=== PATIENT | female | born 1945 | race Caucasian/White ===

== ENCOUNTER → 2016-05-11 | Outpatient (CLI) | payer MEDICARE | END | disposition home or self-care (01) | LOC: GMAB 17:01 | PROVIDERS: ATTEND Family Medicine | DX: R30.0 Dysuria (principal) ==

== ENCOUNTER → 2016-08-12 | Outpatient (CLI) | payer MEDICARE ==
--- NOTE | 2016-08-13 10:12 | MAM ---
History: Well woman exam. Date of exam: 08/12/2016 Services provided: Bilateral full field digital screening mammography. CAD, the images were reviewed with R2 computer aided detection. FINDINGS: Glandular tissue is scattered glandular contour. Comparison with 2012 study. No dominant mass, architectural distortion or clustered microcalcification. IMPRESSION: Benign exam Recommendation: Routine annual mammography BIRAD CATEGORY: 2 BENIGN FINDINGS NEGATIVE Electronically signed by: Brit Torres MD 08/13/2016 10:12 AM CDT Workstation: [id number]
== END | disposition home or self-care (01) ==
LOC: MAMMO 10:32
PROVIDERS: ATTEND Family Medicine
DX: Z12.31 Encounter for screening mammogram for malignant neoplasm of breast (principal)

== ENCOUNTER → 2016-09-08 | Outpatient (CLI) | payer MEDICARE | LOC: GMAB 14:16 | PROVIDERS: ATTEND Family Medicine | DX: I10 Essential (primary) hypertension (principal); E78.5 Hyperlipidemia, unspecified ==

== ENCOUNTER → 2016-10-23 | Outpatient (CLI) | payer MEDICARE ==
--- NOTE | 2016-10-23 15:48 | US ---
EXAM DESCRIPTION: Carotid Duplex CLINICAL HISTORY: STENOSIS OF BILATERAL CAROTID ARTERIES I65.23 COMPARISON: None. TECHNIQUE: Transcutaneous scanning utilizing 2-dimensional and Doppler modes to evaluate the bilateral carotid systems and vertebral arteries. Percentage of diameter of stenosis or no stenosis recorded will be based upon NASCET criteria. FINDINGS: Peak systolic/end diastolic (CM-Sec) CCA Right 97/18 Left 112/15. ICA Right proximal 66/24, distal 81/13. Left proximal 63/6, Distal 64/16. Vertebral Right 73/9 Left 54/7. ECA (PS Only) Right 150. left 77. ICA/CCA peak systolic ratio: Right 0.8 Left 0.6 ICA/CCA end diastolic ratio: Right 0.7 Left 1.1 Vertebral arteries: antegrade flow. Comments: Bilateral stenoses in the common carotid bulb are less than 25%. Atherosclerotic calcification is visualized. IMPRESSION: 1. Doppler evaluation of the bilateral carotid systems and vertebral arteries shows no hemodynamically significant stenoses. 2. No significant amount of plaque seen in the carotid arteries bilaterally. Bilateral vertebral arteries showed antegrade-cephalad flow. Electronically signed by: Emory Alcantar MD 10/23/2016 3:47 PM CDT
== END | disposition home or self-care (01) ==
LOC: US 11:19
PROVIDERS: ATTEND Family Medicine
DX: I65.23 Occlusion and stenosis of bilateral carotid arteries (principal)

== ENCOUNTER → 2017-09-17 | Outpatient (CLI) | payer MEDICARE | LOC: GMAE 10:41 | PROVIDERS: ATTEND Family Medicine | DX: I10 Essential (primary) hypertension (principal) ==

== ENCOUNTER → 2017-09-21 | Outpatient (CLI) | payer MEDICARE ==
--- NOTE | 2017-09-23 09:22 | MAM ---
EXAM DESCRIPTION: 3D Screening BILATERAL : Digital Mammography. CLINICAL HISTORY: 71 years Female SCREENING . Soreness under the left arm next to Breast. Remote family history of breast cancer. Childbirth. Postmenopausal. No HRT. COMPARISON: 2-D digital screening bilateral study 08/12/2016. Report from prior examination also reviewed. TECHNIQUE: Bilateral CC and MLO projection full-field images, 3-D tomosynthesis digital mammographic technique. CAD not utilized. FINDINGS: The breast parenchymal density pattern is: Scattered areas of fibroglandular density. No skin thickening or nipple retraction. Right breast axillary lymph nodes. Bilateral solitary microcalcifications. Lymph node in the right axillary tail. No new focal, stellate mass or density, focal asymmetry , and no suspicious microcalcifications bilaterally. Stable mammograms compared to prior study, taking into account differences in mammographic technique. IMPRESSION: BI-RADS CATEGORY: 2 - BENIGN FINDINGS. FOLLOW UP: Routine digital bilateral screening, one year interval from August 2017. Written communication explaining the IMPRESSION and follow-up, will be mailed to the patient and referring health care provider. According to the [employer], yearly mammograms are recommended starting at age 40 and continuing as long as a woman is in good health. Any breast change noted on a breast self-exam should be reported promptly to the patient's healthcare provider. Breast MRI is recommended for women with an approximately 20-25% or greater lifetime risk of breast cancer, including women with a strong family history of breast or ovarian cancer and women who have been treated for Hodgkin's disease. A negative mammographic report should not delay tissue diagnosis in patients with significant clinical history or physical findings. Extremely dense breast tissue limits the sensitivity of digital mammography. Electronically signed by: Emory Alcantar MD 09/23/2017 9:20 AM CDT
== END ==
LOC: MAMMO 09:30
PROVIDERS: ATTEND Family Medicine
DX: Z12.31 Encounter for screening mammogram for malignant neoplasm of breast (principal)

== ENCOUNTER → 2017-09-30 | Outpatient (CLI) | payer MEDICARE | LOC: GMAE 12:01 | PROVIDERS: ATTEND Family Medicine | DX: M25.50 Pain in unspecified joint (principal) ==

== ENCOUNTER → 2018-03-24 | Outpatient (CLI) | payer MEDICARE ==
--- NOTE | 2018-03-25 08:19 | MRI ---
MRI right knee without contrast INDICATION: Osteoarthritis knee pain TECHNIQUE: Noncontrast MR imaging right knee FINDINGS: Moderate joint effusion. Cruciate ligaments are intact. Extensor tendons are intact. Diffuse relatively horizontal degenerative tears of both menisci medial greater than lateral. Advanced osteoarthrosis of the knee most pronounced in the patellofemoral and medial tibiofemoral compartments with multifocal grade 4 chondrosis subchondral edema and cystic change. Joint space narrowing is most severe in the medial tibiofemoral compartment virtually [id number]. There is degenerative enlargement of the medial meniscus with partial extrusion along the medial jointline. Collateral ligaments are continuous although there is bowing and laxity of the MCL related to the joint space narrowing. There is maceration of the posterior horn medial meniscus near the root. Mild ganglion formation along the posterior aspect of the knee. Mild synovitis within the joint fluid reactive in appearance. Normal patellofemoral alignment. Multifocal grade 4 patellofemoral chondrosis with subchondral edema and cystic change with marginal osteophytes. Mild prepatellar and superficial infrapatellar bursitis. IMPRESSION: Osteoarthrosis of the right knee most severe in the medial tibiofemoral compartment and patellofemoral joint with lesser changes the lateral tibiofemoral Degenerative meniscal tears medial greater than lateral with partial medial extrusion of the medial meniscus Moderate joint effusion with mild synovitis and ganglion formation No stabilizing ligament rupture Electronically signed by: Leif Rae MD 03/25/2018 8:16 AM [employer]
== END ==
LOC: MRI 13:00
PROVIDERS: ATTEND Family Medicine
DX: M17.11 Unilateral primary osteoarthritis, right knee (principal); M25.461 Effusion, right knee

== ENCOUNTER → 2018-04-01 | Outpatient (CLI) | payer MEDICARE ==
--- NOTE | 2018-04-01 09:15 | RAD ---
EXAM DESCRIPTION: Pelvis CLINICAL HISTORY: 72 years Female, PAIN IN RIGHT HIP COMPARISON: None. FINDINGS: Single AP view the pelvis was obtained. No acute fracture or malalignment. Degenerative calcifications arise from the margins of the acetabula and both hips. No significant hip joint space narrowing. The sacroiliac joints and pubic symphysis are unremarkable. Pelvic phleboliths. IMPRESSION: Mild degenerative changes in both hips. Electronically signed by: Juan Vidal MD 04/01/2018 8:57 AM [facility]
== END ==
LOC: LAB.O 08:22
PROVIDERS: ATTEND Orthopaedic Surgery
DX: M25.551 Pain in right hip (principal)

== ENCOUNTER → 2018-04-08 | Outpatient (CLI) | payer MEDICARE ==
--- NOTE | 2018-04-08 11:06 | RAD ---
EXAM DESCRIPTION: Shoulder,Right 2 or More Views CLINICAL HISTORY: RIGHT SHOULDER PAIN COMPARISON: None. IMPRESSION: 4 views of the right shoulder show no acute fracture or dislocation. Osteophyte of the greater tuberosity is seen [employer] with osteoarthritic changes. Moderate to severe osteoarthritic changes of the right acromioclavicular joint are seen with inferior osteophytes of the distal clavicle and acromion measuring 4 mm. Electronically signed by: Uriel Gardner MD 04/08/2018 11:04 AM [facility]
== END ==
LOC: RAD 09:37
PROVIDERS: ATTEND Orthopaedic Surgery
DX: M19.011 Primary osteoarthritis, right shoulder (principal)

== ENCOUNTER → 2018-04-29 | Outpatient (CLI) | payer MEDICARE ==
--- NOTE | 2018-04-29 15:53 | MRI ---
EXAM DESCRIPTION: Cervical Spine: MRI. CLINICAL HISTORY: 72 years Female CERVICAL DISORDER C6-C7 WITH RADICULOPATHY COMPARISON: None. TECHNIQUE: Multiplanar, high-field MRI, multiple sequences, non-contrast Cervical spine. FINDINGS: C4-C5: Minimal arthrosis bilateral facets. Disc desiccation and minimal disc space loss but no bulging. Canal and bilateral neural foramina are patent. C5-C6: Minimal disc desiccation and minimal disc space loss. Tiny posterior bulge but not abutting the cord. Arthrosis and hypertrophy of the left facet with minimal narrowing of the left neural foramen. Canal and right neuroforamen are patent and right facet joint unremarkable. C6-C7: Disc desiccation with disc space preserved. Anterior bulging with tiny posterior bulge. Bilateral facet joints unremarkable. Mild canal narrowing with neural foramina patent. T1-T2: Normal signal in the disc with disc space maintained. Facet arthrosis and hypertrophy on the right with minimal narrowing of the neural foramen. Left facet joint and posterior ligaments unremarkable. Canal and left neuroforamen are patent. Normal signal in the remaining discs with no bulging. Disc spaces preserved. Canal and neural foramina are patent. Facet joints are unremarkable. Spinal alignment slight kyphosis.. No cord compression or cord edema. Atlantoaxial joint minimal arthrosis inferior articular fluid.. Base of the cerebellar tonsils is above the foramen magnum. Paravertebral soft tissues low-density tissue, but no definite mass in the neck soft tissues abutting the right thyroid gland posterior to the right jugular vein and carotid.. Contralateral soft tissues appear more fatty. Vertebral bodies are not compressed at any level. Normal marrow signal in the remaining vertebral bodies and the posterior elements. IMPRESSION: 1. Some of the discs are desiccated with minimal bulging but no significant bulging or herniation and no canal stenosis. Facet arthrosis and hypertrophy at some levels but no significant encroachment on the canal or neural foramina. No abnormal marrow signal. 2. Vague soft tissue density but no definite soft tissue mass or enlarged lymph nodes near the right common carotid bifurcation and inferior to the right thyroid lobe, abutting the right internal jugular. At the level of C7. Consider soft tissue ultrasound evaluation of the thyroid and parathyroid soft tissues and the soft tissues around the distal right common carotid bifurcation. Electronically signed by: Emory Alcantar MD 04/29/2018 3:50 PM [facility]
== END ==
LOC: MRI 11:00
PROVIDERS: ATTEND Psychiatry & Neurology Neurology
DX: M50.123 Cervical disc disorder at C6-C7 level with radiculopathy (principal)

== ENCOUNTER 2018-05-30 11:39 | Emergency (ER) | payer MEDICARE ==
[2018-05-30] MEDS ORDERED: FAMOTIDINE IV PREMIX 20 MG in PREMIX BAG 1 BAG IVPB ONE (11:56)
[2018-05-30] MEDS ORDERED: methylPREDNISolone SODIUM SUC 125 MG/2 ML VIAL IV ONE (11:56)
[2018-05-30] MEDS ORDERED: diphenhydrAMINE HCL 50 MG/ML VIAL IV ONE (11:57)
[2018-05-30] MEDS ORDERED: FAMOTIDINE IV PREMIX 50 ML IVPB ONE (11:58)
--- NOTE | 2018-05-30 12:00 | ED.PDOC ---
History of Present Illness - General Chief Complaint: Allergic Reaction Stated Complaint: rash Time Seen by Provider: 05/30/18 11:48 Source: patient Exam Limitations: no limitations - History of Present Illness Initial Comments: Pt noticed a rash yesterday at noon and has had "tingling" of tougue. Pt has no itching, swelling of throat or increased SOB. Pt has chronic SOB Pt has been taking po Benadryl without help Timing/Duration: 24 hours Severity: moderate Improving Factors: nothing Worsening Factors: nothing Associated Symptoms: denies symptoms Allergies/Adverse Reactions: Allergies Codeine Allergy (Severe, Verified 12/27/14 15:48) Rash Shortness of breath Iodine Allergy (Severe, Verified 12/27/14 15:48) Penicillins Allergy (Severe, Verified 12/27/14 15:48) Anaphylaxis Phenobarbital Allergy (Severe, Verified 12/27/14 15:48) Anaphylaxis Shellfish Allergy Allergy (Severe, Verified 12/27/14 15:48) Sulfa Antibiotics Allergy (Severe, Verified 12/27/14 15:48) Hives Furosemide [From Lasix] Adverse Reaction (Verified 12/27/14 15:48) Unknown if an allergy ivp dye Allergy (Severe, Uncoded 12/27/14 15:48) Shortness of Breath Home Medications: Ambulatory Orders RX: Aspirin [Baby Aspirin] 81 mg PO QD 10/22/14 RX: Diltiazem HCl Coated Beads [Diltiazem HCl ER] 240 mg PO DAILY 10/22/14 RX: Montelukast Sodium 10 mg PO DAILY 10/22/14 RX: Spironolactone 75 mg PO DAILY 10/22/14 RX: Albuterol Sulfate [Proair Hfa] 2 puff INH Q4H PRN 10/24/14 Acetaminophen Arthritis [Tylenol Arthritis] 650 mg PO PRN 09/19/15 Hydroxychloroquine Sulfate [Plaquenil] 200 mg PO BID 05/30/18 RX: Atorvastatin Calcium 40 mg PO DAILY 05/30/18 RX: Balsalazide Disodium 3,000 mg PO DAILY 05/30/18 RX: Benzonatate 200 mg PO Q8H PRN 05/30/18 RX: Prednisone [Deltasone] 20 mg PO BID #10 tab 05/30/18 RX: hydrOXYzine HCl [Atarax] 25 mg PO Q6HR PRN #20 tab 05/30/18 Review of Systems - Review of Systems Constitutional: States: no symptoms reported EENTM: States: mouth swelling - tingling Respiratory: Denies: cough, short of breath, wheezing Cardiology: Denies: chest pain, palpitations Gastrointestinal/Abdominal: Denies: abdominal pain, diarrhea, nausea Genitourinary: States: no symptoms reported Musculoskeletal: Denies: no symptoms reported, muscle pain Skin: States: rash Neurological: States: anxiety, paresthesia Endocrine: States: no symptoms reported Hematologic/Lymphatic: States: no symptoms reported Past Medical History (General) - Patient Medical History Hx Seizures: No Hx Stroke: No Hx Dementia: No Hx Asthma: Yes Hx of COPD: No Hx Cardiac Disorders: No Hx Congestive Heart Failure: Yes Hx Pacemaker: No Hx Hypertension: No Hx Thyroid Disease: No Hx Diabetes: No Hx Gastroesophageal Reflux: No Hx Renal Disease: No Hx Cancer: No Hx of HIV: No Hx Hepatitis C: No Hx MRSA: Yes MRSA Source:: Wound - Vaccination History Hx Influenza Vaccination: No - Social History Hx Tobacco Use: No Hx Alcohol Use: No Hx Substance Use: No Hx Substance Use Treatment: No Hx Depression: No Hx Physical Abuse: No Hx Emotional Abuse: No Family Medical History - Family History Mother Family History: No Known Living Status: Cause of : cancer Hx Cardiac Disease: Yes - cardiomegaly at an early age Hx Family Cancer: Yes - colorectal Physical Exam - Physical Exam General Appearance: Alert, Anxious Eye Exam: bilateral normal Ears, Nose, Throat: hearing grossly normal, normal ENT inspection, normal pharynx Neck: non-tender, full range of motion Respiratory: lungs clear, normal breath sounds, no respiratory distress Cardiovascular/Chest: normal peripheral pulses, regular rate, rhythm, no edema Gastrointestinal/Abdominal: normal bowel sounds, non tender Extremity: normal range of motion, non-tender, normal inspection, no pedal edema Neurologic: alert, normal mood/affect, oriented x 3 Skin Exam: rash - Fine macular diffuse rash to trunk and extremities Lymphatic: no adenopathy Departure - Departure Clinical Impression: Drug allergy Disposition: Discharge to Home or Self Care Condition: Fair Departure Forms: ED Discharge - Pt. Copy, Patient Portal Self Enrollment Instructions: DI for Allergic Rhinitis Referrals: DINO MANCINI MD [Primary Care Provider] - 1-2 Weeks Prescriptions: RX: hydrOXYzine HCl [Atarax] 25 mg PO Q6HR PRN #20 tab PRN Reason: Rash RX: Prednisone [Deltasone] 20 mg PO BID #10 tab Home Medications: Ambulatory Orders RX: Aspirin [Baby Aspirin] 81 mg PO QD 10/22/14 RX: Diltiazem HCl Coated Beads [Diltiazem HCl ER] 240 mg PO DAILY 10/22/14 RX: Montelukast Sodium 10 mg PO DAILY 10/22/14 RX: Spironolactone 75 mg PO DAILY 10/22/14 RX: Albuterol Sulfate [Proair Hfa] 2 puff INH Q4H PRN 10/24/14 Acetaminophen Arthritis [Tylenol Arthritis] 650 mg PO PRN 09/19/15 Hydroxychloroquine Sulfate [Plaquenil] 200 mg PO BID 05/30/18 RX: Atorvastatin Calcium 40 mg PO DAILY 05/30/18 RX: Balsalazide Disodium 3,000 mg PO DAILY 05/30/18 RX: Benzonatate 200 mg PO Q8H PRN 05/30/18 RX: Prednisone [Deltasone] 20 mg PO BID #10 tab 05/30/18 RX: hydrOXYzine HCl [Atarax] 25 mg PO Q6HR PRN #20 tab 05/30/18
[2018-05-30 12:45] VITALS: BP 117/61
[2018-05-30 13:16] VITALS: TEMP 98.3; O2SAT 94
== END 2018-05-30 13:15 | disposition home or self-care (01) ==
LOC: ER 11:39
DX: L27.0 Generalized skin eruption due to drugs and medicaments taken internally (principal); T50.905A Adverse effect of unspecified drugs, medicaments and biological substances, initial encounter; J45.909 Unspecified asthma, uncomplicated; I50.9 Heart failure, unspecified; Z79.82 Long term (current) use of aspirin; Z79.899 Other long term (current) drug therapy; Z91.041 Radiographic dye allergy status; Z88.5 Allergy status to narcotic agent; Z88.0 Allergy status to penicillin; Z88.8 Allergy status to other drugs, medicaments and biological substances; Z88.2 Allergy status to sulfonamides; Z91.013 Allergy to seafood
CPT/HCPCS: 80053; 85025; J1200; J2930; J3490

== ENCOUNTER → 2019-06-13 | Outpatient (CLI) | payer MEDICARE ==
--- NOTE | 2019-06-13 08:49 | RAD ---
EXAM DESCRIPTION: Pelvis CLINICAL HISTORY: 73 years Female, HIP PAIN COMPARISON: Radiograph of the pelvis dated 04/01/2018.. TECHNIQUE: AP radiograph of the pelvis was performed. FINDINGS: The pelvic ring appears grossly intact on this single AP radiograph. No acute fracture or dislocation. Bilateral sacroiliac joints appear normal. Mild bilateral hip osteoarthritis. Enthesopathy. The visualized lumbo-sacral spine demonstrates mild degenerative changes. IMPRESSION: Single AP radiograph of the pelvis demonstrates grossly intact pelvic ring. Mild bilateral hip osteoarthritis. Electronically signed by: Rona Gallegos MD 06/13/2019 8:47 AM CDT
--- NOTE | 2019-06-13 08:49 | RAD ---
EXAM DESCRIPTION: Knee,Right Complete CLINICAL HISTORY: 73 years Female, KNEE PAIN TECHNIQUE: 4 views of the right knee were performed. COMPARISON: None available. FINDINGS: The visualized bones appear well mineralized. Tricompartmental osteoarthritis of the right knee, worse in the medial tibiofemoral compartment. Small suprapatellar joint effusion. The soft tissues appear grossly unremarkable. IMPRESSION: Tricompartmental osteoarthritis of the right knee, worse in the medial tibiofemoral compartment. Small suprapatellar joint effusion. No evidence of suprapatellar joint effusion. Electronically signed by: Rona Gallegos MD 06/13/2019 8:48 AM CDT
== END ==
LOC: RAD 08:10
PROVIDERS: ATTEND Orthopaedic Surgery
DX: M17.11 Unilateral primary osteoarthritis, right knee (principal); M25.461 Effusion, right knee; M16.0 Bilateral primary osteoarthritis of hip

== ENCOUNTER → 2019-08-15 | Outpatient (CLI) | payer MEDICARE ==
--- NOTE | 2019-08-16 16:37 | MAM ---
History: Well woman exam. Date of exam: 08/15/2019 Services provided: Bilateral full field digital screening mammography with des. CAD, the images were reviewed with R2 computer aided detection. FINDINGS: Glandular tissue contains scattered areas of fibroglandular densities. Comparison with study from 2017. No dominant mass, architectural distortion or clustered microcalcification. IMPRESSION: Benign exam Recommendation: Annual mammography BIRAD CATEGORY: 2 BENIGN FINDINGS NEGATIVE Exam findings and recommendations will be sent to the patient. Electronically signed by: Brit Torres MD 08/16/2019 4:35 PM CDT Workstation: [id number]
== END ==
LOC: YCFC.O 11:44
PROVIDERS: ATTEND Family Medicine
DX: Z12.31 Encounter for screening mammogram for malignant neoplasm of breast (principal); M35.00 Sjogren syndrome, unspecified; M19.90 Unspecified osteoarthritis, unspecified site

== ENCOUNTER → 2019-08-21 | Outpatient (CLI) | payer MEDICARE | LOC: LAB.O 09:04 | PROVIDERS: ATTEND Family Medicine | DX: Z01.818 Encounter for other preprocedural examination (principal) ==

== ENCOUNTER → 2019-09-04 | Outpatient (CLI) | payer MEDICARE ==
--- NOTE | 2019-09-04 15:03 | RAD ---
EXAM DESCRIPTION: Chest,2 Views x-ray CLINICAL HISTORY: 73 years Female, PRE SURGERY EVALUATION COMPARISON: None. IMPRESSION: Heart size and pulmonary vascularity are within normal limits. Elevation of the left hemidiaphragm. There is no airspace consolidation, pleural effusion, or pneumothorax. No acute osseous abnormality. Electronically signed by: Kofi Marsh MD 09/04/2019 3:01 PM CDT
== END ==
LOC: YCFC.O 12:36
PROVIDERS: ATTEND Family Medicine
DX: Z01.818 Encounter for other preprocedural examination (principal); J98.6 Disorders of diaphragm

== ENCOUNTER → 2019-11-24 | Outpatient (CLI) | payer MEDICARE | LOC: YCFC.O 14:05 | PROVIDERS: ATTEND Family Medicine | DX: N28.9 Disorder of kidney and ureter, unspecified (principal) ==